=== PATIENT | female | born 2000 | race Two or more races ===

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

== ENCOUNTER 2019-01-16 13:53 | Emergency (ER) | payer OTHER | END 2019-01-16 17:24 | disposition home or self-care (01) | LOC: JER 13:53 ==

== ENCOUNTER 2020-01-30 23:49 | Emergency (ER) | payer OTHER ==
[2020-01-31 00:13] VITALS: BMI 19.1
--- NOTE | 2020-01-31 01:02 | PDOC ---
History of Present Illness - General Chief Complaint: Migraine Headache Stated Complaint: MIGRAINE Time Seen by Provider: 01/31/20 01:02 History Source: Patient Exam Limitations: No Limitations Past History - Medical History Allergies/Adverse Reactions: Allergies Allergy/AdvReac Type Severity Reaction Status Date / Time No Known Allergies Allergy Verified 01/31/20 00:08 Home Medications: Ambulatory Orders Amoxicillin - [Amoxicillin 500mg Capsule -] 500 mg PO BID #14 capsule 05/12/18 Butalb/Acetaminophen/Caffeine [Fioricet Tablet 50-325-40] 1 tab PO Q6H PRN #20 tablet MDD 3 tablets 01/31/20 Anemia: Yes COPD: No - Reproductive History Is Patient Now?: No - Immunization History Immunization Up to Date: Yes - Psycho-Social/Smoking History Smoking History: Never smoked Have you smoked in the past 12 months: No Information on smoking cessation initiated: No - Substance Abuse Hx (Audit-C & DAST Scrn) How often the patient has a drink containing alcohol: Never Score: In Men: 4 or > Positive; In Women: 3 or > Positive: 0 Screen Result (Pos requires Nsg. Audit-10AR): Negative In the last yr the pt used illegal drug/Rx for NonMed reason: No Score: Yes response is considered Positive: 0 Screen Result (Positive result requires Nsg. DAST-10): Negative *Physical Exam - Vital Signs Last Vital Signs Temp Pulse Resp BP Pulse Ox 98.4 F 110 H 20 119/86 100 01/31/20 00:03 01/31/20 00:03 01/31/20 00:03 01/31/20 00:03 01/31/20 00:03 Discharge - Discharge Information Problems reviewed: Yes Clinical Impression/Diagnosis: Migraine Qualifiers: Migraine type: without aura Status migrainosus presence: without status migrainosus Intractability: not intractable Qualified Code(s): G43.009 - Migraine without aura, not intractable, without status migrainosus Condition: Improved Disposition: HOME - Admission No - Follow up/Referral Referrals: ON STAFF,NOT [Primary Care Provider] - Martin Bhardwaj MD [Staff Physician] - - Patient Discharge Instructions Patient Printed Discharge Instructions: DI for Migraine Additional Instructions: You were seen in the ER today for headache, which improved after medication. Please follow-up with your primary care doctor and neurology within 1-2 days to discuss your visit and make sure your symptoms have improved. Please return to the ER if you have any worsening pain, development of fevers or chills, loss of consciousness, inability to tolerate food or fluids, or any other concerns. I have sent medications to your pharmacy. Please take these medications as prescribed. You can take tylenol/fiorecet or motrin every 4-6 hours as needed for pain. - Post Discharge Activity
[2020-01-31] MEDS ORDERED: SODIUM CHLORIDE 1,000 ML IV STA (01:28)
[2020-01-31] MEDS ORDERED: METOCLOPRAMIDE HCL INJECTION 10 MG/2 ML VIAL IVPUSH ONE (01:28)
[2020-01-31] MEDS ORDERED: ACETAMINOPHEN 325 MG TABLET (FP) PO ONE (01:28)
[2020-01-31] MEDS ORDERED: ACETAMINOPHEN 325 MG TABLET (FP) ONE (01:46)
[2020-01-31] MEDS ORDERED: METOCLOPRAMIDE HCL INJECTION 10 MG/2 ML VIAL ONE (01:46)
[2020-01-31 04:23] VITALS: BP 113/87; PULSE 88; TEMP 98.2
--- NOTE | 2020-02-11 04:47 | PDOC ---
Documentation entered by Napoleon Wylie SCRIBE, acting as scribe for Daxa Smith MD. Daxa Smith MD: This documentation has been prepared by the scribe, Napoleon Wylie SCRIBE, under my direction and personally reviewed by me in its entirety. I confirm that the documentation accurately reflects all work, treatment, procedures, and medical decision making performed by me. Attending Attestation - Resident Resident Name: FamiliaEvangelina - ED Attending Attestation I have performed the following: I have examined & evaluated the patient, The case was reviewed & discussed with the resident, I agree w/resident's findings & plan, Exceptions are as noted - HPI HPI: 02/11/20 04:45 Pt comes with her usual migraine headache. - Physicial Exam PE: 01/31/20 01:34 GENERAL: Awake, alert, and fully oriented, in no acute distress HEAD: No signs of trauma EYES: PERRLA, EOMI, sclera anicteric, conjunctiva clear ENT: Auricles normal inspection, hearing grossly normal, nares patent, oropharynx clear without exudates. Moist mucosa NECK: Normal ROM, supple, no lymphadenopathy, JVD, or masses LUNGS: Breath sounds equal, clear to auscultation bilaterally. No wheezes, and no crackles HEART: Regular rate and rhythm, normal S1 and S2, no murmurs, rubs or gallops ABDOMEN: Soft, nontender, normoactive bowel sounds. No guarding, no rebound. No masses EXTREMITIES: Normal range of motion, no edema. No clubbing or cyanosis. No cords, erythema, or tenderness NEUROLOGICAL: Cranial nerves II through XII grossly intact. Normal speech, normal gait SKIN: Warm, Dry, normal turgor, no rashes or lesions noted. - Medical Decision Making 02/11/20 04:46 Pt will be treated with migraine meds here in the ER. Pt to go home with fioricet pt to follow with neurology as an outpatient 02/11/20 04:47 Pt feeling improved after treatment in the ER Discharge - Discharge Information Problems reviewed: Yes Clinical Impression/Diagnosis: Migraine Qualifiers: Migraine type: without aura Status migrainosus presence: without status migrainosus Intractability: not intractable Qualified Code(s): G43.009 - Migraine without aura, not intractable, without status migrainosus Condition: Improved Disposition: HOME - Additional Discharge Information Prescriptions: Butalb/Acetaminophen/Caffeine [Fioricet 50-300-40 mg Capsule] 1 each PO Q6H PRN #24 capsule PRN Reason: headache Butalb/Acetaminophen/Caffeine [Fioricet Tablet 50-325-40] 1 tab PO Q6H PRN #20 tablet MDD 3 tablets PRN Reason: Headache - Follow up/Referral Referrals: Martin Bhardwaj MD [Staff Physician] - ON STAFF,NOT [Primary Care Provider] - - Patient Discharge Instructions Patient Printed Discharge Instructions: DI for Migraine Additional Instructions: You were seen in the ER today for headache, which improved after medication. Please follow-up with your primary care doctor and neurology within 1-2 days to discuss your visit and make sure your symptoms have improved. Please return to the ER if you have any worsening pain, development of fevers or chills, loss of consciousness, inability to tolerate food or fluids, or any other concerns. I have sent medications to your pharmacy. Please take these medications as prescribed. You can take tylenol/fiorecet or motrin every 4-6 hours as needed for pain. - Post Discharge Activity
== END 2020-01-31 04:23 | disposition home or self-care (01) ==
LOC: JER 23:49
PROC: 3E033GC Introduction of Other Therapeutic Substance into Peripheral Vein, Percutaneous Approach (ICD-10-PCS; principal; 2020-01-30)
PROC: 3E0337Z Introduction of Electrolytic and Water Balance Substance into Peripheral Vein, Percutaneous Approach (ICD-10-PCS; 2020-01-30)
DX: G43.009 Migraine without aura, not intractable, without status migrainosus (principal)
CPT/HCPCS: 96361; 96374; 96375; 99284-25

== ENCOUNTER 2022-04-29 10:48 | Emergency (ER) | payer OTHER ==
[2022-04-29 11:21] VITALS: BP 108/79; PULSE 94; RESP 18; TEMP 98.1; BMI 19.1
== END 2022-04-29 14:17 | disposition home or self-care (01) ==
LOC: JER 10:48
DX: H66.92 Otitis media, unspecified, left ear (principal)
CPT/HCPCS: 99281-25

== ENCOUNTER 2022-08-06 17:49 | Emergency (ER) | payer OTHER ==
[2022-08-06 18:40] VITALS: BP 113/82; PULSE 100; RESP 16; TEMP 98.2; BMI 18.3
[2022-08-06] MEDS ORDERED: BACITRACIN ZINC 15 GM TUBE TOPICAL OINTMENT ONE (19:51)
[2022-08-06] MEDS ORDERED: DIPHTH,PERTUSS(ACELL),TET 0.5 ML DISP.SYRIN IM ONE ×2 (19:53→19:56)
[2022-08-06] MEDS ORDERED: CLINDAMYCIN HCL 150 MG CAPSULE (FP) PO ONE (19:57)
== END 2022-08-06 20:26 | disposition home or self-care (01) ==
LOC: JER 17:49 → JERFT 17:49
PROC: 3E0234Z Introduction of Serum, Toxoid and Vaccine into Muscle, Percutaneous Approach (ICD-10-PCS; principal; 2022-08-06)
DX: S80.02XA Contusion of left knee, initial encounter (principal); W01.0XXA Fall on same level from slipping, tripping and stumbling without subsequent striking against object, initial encounter
CPT/HCPCS: 73562-TC-LT-FY; 87070; 87186; 87205; 90471; 90715; 99283-25

== ENCOUNTER 2023-06-20 17:33 | Emergency (ER) | payer OTHER ==
[2023-06-20 17:38] VITALS: BP 111/75; RESP 18; TEMP 99.7; BMI 18.3
[2023-06-20] MEDS ORDERED: LACTATED RINGERS SOLUTION 1000 ML INFUS.BAG IV ONE (18:45)
[2023-06-20] MEDS ORDERED: ONDANSETRON 4 MG/2 ML VIAL IVPUSH ONE (19:22)
[2023-06-20 19:23] LABS: HEMATOCRIT 39.5 % (32.4-45.2); HEMOGLOBIN 12.4 GM/dL (10.7-15.3); MCH 23.7 pg (25.7-33.7); MCHC 31.3 g/dl (32.0-36.0); MEAN CELL VOLUME 75.8 fl (80-96); MEAN PLT VOLUME 7.8 fl (7.5-11.1); PLATELET COUNT 221 10^3/uL (134-434); RBC 5.21 M/mm3 (3.60-5.2); RDW 16.2 % (11.6-15.6); WHITE BLOOD COUNT 20.7 K/mm3 (4.0-10.0)
[2023-06-20 19:25] LABS: EPI CELLS 11 /uL (0-25.1); HYALINE CASTS 1 /uL (0-3.1); PH,URINE 5.5 (5.0-8.0); URINE APPEARANCE CLEAR; URINE BACTERIA 156 /uL (0-1359); URINE BILIRUBIN NEGATIVE (NEGATIVE); URINE COLOR YELLOW; URINE GLUCOSE (UA) NEGATIVE (NEGATIVE); URINE KETONE 2+ (NEGATIVE); URINE LEUK ESTERASE NEGATIVE (NEGATIVE); URINE NITRITE NEGATIVE (NEGATIVE); URINE PROTEIN NEGATIVE (NEGATIVE); URINE RBC 26 /uL (0-23.9); URINE UROBILINOGEN 0.2 mg/dL (0.2-1.0); URINE WBC 15 /uL (0-25.8)
[2023-06-20] MEDS ORDERED: ONDANSETRON 4 MG/2 ML VIAL ONE (19:25)
[2023-06-20] MEDS ORDERED: SODIUM CHLORIDE 0.9% 500 ML INFUS.BAG IV ONE (19:31)
[2023-06-20 19:41] LABS: POTASSIUM 3.7 mmol/L (3.5-5.1)
[2023-06-20 19:44] LABS: ALBUMIN 4.2 g/dl (3.4-5.0); BLOOD UREA NITROGEN 11.6 mg/dL (7-18)
[2023-06-20 19:47] LABS: CREATININE 0.8 mg/dL (0.55-1.3)
[2023-06-20 19:48] LABS: BILIRUBIN,TOTAL 1.7 mg/dL (0.2-1); TOT PROT 8.2 g/dl (6.4-8.2)
[2023-06-20] MEDS ORDERED: ACETAMINOPHEN 1000 MG/100 ML BAG IVPB ONE (19:51)
[2023-06-20] MEDS ORDERED: ACETAMINOPHEN INJECTION 100 ML IVPB ONE (19:58)
[2023-06-20 20:03] VITALS: PULSE 102
[2023-06-20 20:52] LABS: ANISOCYTOSIS 1+; MACROCYTOSIS 1+
[2023-06-20 20:53] LABS: PLATELET ESTIMATE ADEQUATE
== END 2023-06-20 21:32 | disposition home or self-care (01) ==
LOC: JER 17:33
PROC: 3E033NZ Introduction of Analgesics, Hypnotics, Sedatives into Peripheral Vein, Percutaneous Approach (ICD-10-PCS; principal; 2023-06-20)
PROC: 3E033GC Introduction of Other Therapeutic Substance into Peripheral Vein, Percutaneous Approach (ICD-10-PCS; 2023-06-20)
DX: R53.81 Other malaise (principal); M79.10 Myalgia, unspecified site; R07.0 Pain in throat; R55 Syncope and collapse; R42 Dizziness and giddiness; R07.9 Chest pain, unspecified; R11.0 Nausea; Z20.822 Contact with and (suspected) exposure to COVID-19
CPT/HCPCS: 0241U-QW; 36415; 71046-TC-FY; 80053; 81003; 84484; 84703; 85025; 87086; 87651; 93005; 93010; 99285-25

== ENCOUNTER 2024-07-23 20:52 | Emergency (ER) | payer OTHER ==
[2024-07-23 21:01] VITALS: BP 126/85; PULSE 91; RESP 18; TEMP 98.1; BMI 19.1
[2024-07-23] MEDS: SODIUM CHLORIDE 0.9% 500 ML INFUS.BAG IV ONE (22:03)
[2024-07-23 22:13] LABS: HEMATOCRIT 36.9 % (32.4-45.2); HEMOGLOBIN 11.9 GM/dL (10.7-15.3); LYMPH % 31.4 % (8-40); MCH 25.1 pg (25.7-33.7); MCHC 32.4 g/dl (32.0-36.0); MEAN CELL VOLUME 77.5 fl (80-96); MONO % 5.6 % (3.8-10.2); PLATELET COUNT 247 10^3/uL (134-434); RBC 4.77 M/mm3 (3.60-5.2); RDW 14.7 % (11.6-15.6); WHITE BLOOD COUNT 6.5 K/mm3 (4.0-10.0)
[2024-07-23 22:45] LABS: POTASSIUM 4.4 mmol/L (3.5-5.1)
[2024-07-23 22:47] LABS: CALCIUM 9.6 mg/dL (8.5-10.1)
[2024-07-23 22:48] LABS: ALBUMIN 4.1 g/dl (3.4-5.0); BLOOD UREA NITROGEN 14.6 mg/dL (7-18); MAGNESIUM 2.2 mg/dL (1.8-2.4)
[2024-07-23 22:51] LABS: CREATININE 0.7 mg/dL (0.55-1.3)
[2024-07-23 22:52] LABS: TOT PROT 7.8 g/dl (6.4-8.2)
[2024-07-23 22:53] LABS: BILIRUBIN,TOTAL 0.6 mg/dL (0.2-1)
[2024-07-23 23:40] LABS: HIV INTERPRETATION NEGATIVE (NEGATIVE)
== END 2024-07-23 23:33 | disposition home or self-care (01) ==
LOC: JER 20:52
DX: R55 Syncope and collapse (principal); E86.0 Dehydration; R11.10 Vomiting, unspecified; Z20.822 Contact with and (suspected) exposure to COVID-19
CPT/HCPCS: 0241U-QW; 36415; 80053; 82962; 83735; 84484; 84703; 85025; 86803; 87389; 93005; 93010; 99284-25